=== PATIENT | male | born 1965 | race Caucasian/White ===

== ENCOUNTER 2023-04-27 05:30 | Day surgery (SDC) | payer MEDICAID ==
[~2023-04-27] VITALS: Ht 170.2 cm; Wt 81.8 kg
[2023-04-27] VITALS (16 sets, daily range): BP systolic 116–141; BP diastolic 52–84; PULSE 52–76; TEMP 97.1–98.2
[~2023-04-27 05:30] MED LIST: FLEXERIL 1010 MG/TAB PO; NORCO 325 MG-51 TAB PO
[2023-04-27] MEDS ORDERED: NORVASC 5MG5 MG/TAB PO (06:06)
[2023-04-27] MEDS ORDERED: PRINIVIL20 MG PO (06:06)
[2023-04-27] MEDS ORDERED: SUBOXONE 2 MG-01 TAB SL (09:16)
--- NOTE | 2023-04-27 09:40 | NUR ---
pt admitted to room from pacu, a&ox4. pt reports numbness to bilateral legs and has minimal sensation to right hip. aqaucell dressing is cdi, ice pack to hip. teds and scds to ble. bowie to dd w clear yellow urine output. left hand IV patent. med rec complete. fall precautions in place. call light in reach. no needs at this time.
--- NOTE | 2023-04-27 11:00 | NUR ---
INT discontinued. discharge instructions given to patient. waiting for ride.
--- NOTE | 2023-04-27 21:00 | NUR ---
HS MEDS GIVEN. PT IN BED. IS ALERT AND ORIENTED X4. REPORTS GETTING A NAP AFTER TRAMADOL GIVEN EARLIER. HAS INT TO LT HAND. GODOY TO BSD WITH YELLOW URINE. DOING ANKLE PUMPS WITHOUT PROBLEM.
--- NOTE | 2023-04-27 22:27 | NUR ---
IV ANTIBIOTIC GIVEN WITHOUT PROBLEM. NORCO 1 TAB GIVEN FOR RT HIP PAIN. JERMAIN HAYES D/I TO RT HIP. ICE PACK REPLACED.
[2023-04-28] VITALS (7 sets, daily range): BP systolic 116–128; BP diastolic 65–76; PULSE 63–70; TEMP 98–98.7
--- NOTE | 2023-04-28 03:48 | NUR ---
PT REPORTS PAIN TO RT HIP. MEDICATED WITH NORCO 7.5MG 1 PO NOW.
--- NOTE | 2023-04-28 04:42 | NUR ---
PT STILL HAVING RT HIP PAIN, TRAMADOL 50MG PO GIVEN.
--- NOTE | 2023-04-28 05:30 | NUR ---
REPEATED TRAMADOL 50MG PO NOW FOR RT HIP PAIN.
[2023-04-28 05:36] LABS: HEMOGLOBIN 12.3 g/dl (13.5-18.0)
[2023-04-28 05:38] LABS: HEMATOCRIT 34.5 % (42.0-52.0)
--- NOTE | 2023-04-28 06:10 | NUR ---
REMOVED GODOY CATHETER AFTER DEFLATING BALLOON, TOLERATED WITHOUT PROBLEM.
[2023-04-28] MEDS ORDERED: ASPI325T6 PO (06:11)
[2023-04-28] MEDS ORDERED: ULTRAM 50MG TAB50 MG PO (06:11)
[2023-04-28] MEDS ORDERED: NORCO 325 MG-7.1 TAB PO (06:11)
[2023-04-28] MEDS ORDERED: CELEBREX 200MG200 MG PO (06:11)
--- NOTE | 2023-04-28 07:32 | NUR ---
pt sitting up in bed watching tv, a&ox4. pt reports some discomfort in his right hip, aqaucell dressing is cdi. ice applied to hip. meds given and assessment complete. INT to left hand. teds and scds to ble. fall precautions in place. pt denies needs at this time. call light in reach.
--- NOTE | 2023-04-28 14:05 | NUR ---
Distiller met with patient to discuss discharge planning. Patient lives alone in [place] and sees YAHIR Vargas for primary care. Patient wants medications sent from this stay to [facility]. Patient has a walker for his recovery but reported he normally does use any DME. Patient is normally independent with ADLS and plans to return home at time of discharge. Patient advised his sister, Bailey (ph#[phone]) is his DPOA-HC. Patient has outpatient PT set up at [facility] and confirmed he has his first appointment already set up. Discharge Plan: Home
--- NOTE | 2023-04-28 14:20 | NUR ---
discharge instructions given to pt and family, all questions answered.
== END 2023-04-28 14:25 | disposition home or self-care (01) ==
LOC: SDCO 05:30 → SURG 09:38 → SDCO 04-28 14:25
PROVIDERS: Physician Assistant
DX: M16.11 Unilateral primary osteoarthritis, right hip (principal); K21.9 Gastro-esophageal reflux disease without esophagitis; F17.290 Nicotine dependence, other tobacco product, uncomplicated; Z79.899 Other long term (current) drug therapy
CPT/HCPCS: OP; A4314; A6197; A9284; C1713; C1776; J0665; J0690; J1885; J2250; J2270; J2371; J2704; J7120